=== PATIENT | male | born 1945 | race Native Hawaiian/Other Pacific Islander ===

== ENCOUNTER 2023-02-05 08:28 | Outpatient (CLI) | payer OTHER ==
[2023-02-05 08:48] LABS: PLATELET COUNT 292 K/uL (142-355)
[2023-02-05 08:53] LABS: POTASSIUM 4.5 mmol/L (3.6-5.2)
== END 2023-02-05 19:02 | disposition home or self-care (01) ==
LOC: LABW 08:28
PROVIDERS: ATTEND Nurse Practitioner Adult Health
DX: Z01.810 Encounter for preprocedural cardiovascular examination (principal); I10 Essential (primary) hypertension; R35.89 Other polyuria; Z79.899 Other long term (current) drug therapy
CPT/HCPCS: 36415; 80048; 85027

== ENCOUNTER 2023-06-05 11:18 | Outpatient (CLI) | payer OTHER ==
[2023-06-05 11:39] LABS: POTASSIUM 3.9 mmol/L (3.6-5.2)
== END 2023-06-05 19:24 | disposition home or self-care (01) ==
LOC: LABW 11:18
PROVIDERS: ATTEND Nurse Practitioner Adult Health
DX: R35.89 Other polyuria (principal); I42.8 Other cardiomyopathies; Z79.899 Other long term (current) drug therapy
CPT/HCPCS: 36415; 80048

== ENCOUNTER 2023-07-06 09:42 | Outpatient (CLI) | payer OTHER ==
[2023-07-06 10:21] LABS: POTASSIUM 3.7 mmol/L (3.6-5.2)
== END 2023-07-06 19:15 | disposition home or self-care (01) ==
LOC: LABW 09:42
PROVIDERS: ATTEND Nurse Practitioner Adult Health
DX: R35.89 Other polyuria (principal); I50.9 Heart failure, unspecified; I11.0 Hypertensive heart disease with heart failure
CPT/HCPCS: 36415; 80048